=== PATIENT | female | born 1950 | race Caucasian/White ===

== ENCOUNTER 2021-12-24 12:05 | Outpatient (CLI) | payer MEDICARE, OTHER ==
[2021-12-24] VITALS (18 sets, daily range): BP systolic 89–126; BP diastolic 45–74
[~2021-12-24 12:05] MED LIST: METH4TAB81 PO
== END 2021-12-24 23:59 | disposition home or self-care (01) ==
LOC: CARD DIAG 12:05
PROVIDERS: ATTEND Internal Medicine Interventional Cardiology
DX: R55 Syncope and collapse (principal)
CPT/HCPCS: 93660

== ENCOUNTER 2022-09-21 07:54 | Day surgery (SDC) | payer MEDICARE, BC ==
[2022-09-16 16:25] LABS: BASOPHILS # (AUTO) 0.1 X10'3 (0-0.2); EOSINOPHILS # (AUTO) 0.2 X10'3 (0-0.9); EOSINOPHILS % (AUTO) 2.1 % (0-6); LYMPHOCYTES # (AUTO) 2.1 X10'3 (1.1-4.8); LYMPHOCYTES % (AUTO) 27.4 % (21-51); MEAN CORPUSCULAR HEMOGLOBIN 29.1 PG (27.0-31.0); MEAN CORPUSCULAR HGB CONC 33.7 g/dL (33.0-36.5); MEAN CORPUSCULAR VOLUME 86.4 FL (78-98); MEAN PLATELET VOLUME 7.3 FL (7.4-10.4); MONOCYTES # (AUTO) 0.8 X10'3 (0-0.9); MONOCYTES % (AUTO) 10.6 % (2-12); NEUTROPHILS # (AUTO) 4.6 X10'3 (1.8-7.7); NEUTROPHILS % (AUTO) 58.9 % (42-75); PRE OP HEMATOCRIT 39.3 % (35.0-45.0); PRE OP HEMOGLOBIN 13.2 g/dL (12.0-16.0); PRE OP PLATELET COUNT 402 X10'3 (140-440); RED BLOOD COUNT 4.55 X10'6 (4.20-5.60)
[2022-09-16 16:53] LABS: ALBUMIN 3.1 G/DL (3.4-5.0); ALBUMIN/GLOBULIN RATIO 0.7 (1.1-1.5); ALKALINE PHOSPHATASE 95 IU/L (46-116); BLOOD UREA NITROGEN 14 MG/DL (7-18); BUN/CREATININE RATIO 15.4 (6.6-38.0); CALCIUM 9.2 MG/DL (8.5-10.1); CHLORIDE 103 MMOL/L (99-107); CREATININE 0.91 MG/DL (0.40-0.90); PRE OP ALT 17 U/L (30-65); PRE OP ANION GAP 7 (8-16); PRE OP AST 16 U/L (10-37); PRE OP BILIRUB, TOTAL 0.3 MG/DL (0.0-1.0); PRE OP GLUCOSE 112 MG/DL (70-104); PRE OP POTASSIUM 3.9 MMOL/L (3.4-5.1); PRE OP SODIUM 139 MMOL/L (135-145); TOTAL CARBON DIOXIDE 29.1 MMOL/L (24-32); TOTAL PROTEIN 7.4 G/DL (6.4-8.2); eGFR 61 ML/MIN
[2022-09-21] VITALS (8 sets, daily range): BP systolic 119–132; BP diastolic 62–68
[~2022-09-21] VITALS: Ht 160 cm; Wt 57.4 kg
[~2022-09-21 07:54] MED LIST changes: +APIX5TAB3 PO; +DOCUMENT DATE & TIME OF BETA-BLOCKER PO ONE; -METH4TAB81 PO; +METO50TA16 PO; +MULT-1085 PO; +PANT20TA18 PO; +famotidine 20mg tablet PO ONE; +ringers solution, lacted 1,000 ML IV SCH
[2022-09-21] MEDS ORDERED: labetalol 20mg/4ml (5mg/ml) syringe IV PRN (08:10)
[2022-09-21] MEDS ORDERED: ringers solution, lacted 1,000 ML IV SCH (08:10)
[2022-09-21] MEDS ORDERED: morphine 4 MG/ML inj SYRINge IV PRN (08:10)
[2022-09-21] MEDS ORDERED: ondansetron/PF 4mg/2ml inj IV PRN (08:10)
[2022-09-21] MEDS ORDERED: morphine 2 MG/ML inj. syringe IV PRN (08:10)
[2022-09-21] MEDS ORDERED: proCHLORperazine 10 MG/2 ml inj IV PRN (08:10)
[2022-09-21] MEDS ORDERED: fentaNYL/PF 50MCG/1 ML 2ML syringe IV ONE (08:10)
[2022-09-21] MEDS ORDERED: enalaprilat dihydrate 2.5mg/2ml vial IV PRN (08:10)
[2022-09-21] MEDS ORDERED: LIDOcaine 1% 30ml preserv. free vial ONE (10:35)
[2022-09-21] MEDS ORDERED: BUPIVAcaine 0.5% inj/PF 30 ML ONE (10:35)
[2022-09-21] MEDS ORDERED: fentaNYL/PF 50MCG/1 ML 2ML syringe ONE (11:10)
[2022-09-21] MEDS ORDERED: MIDAZolam 1 MG/ML 5ML VIAL ONE (11:10)
[2022-09-21] MEDS ORDERED: propofol inj 20 ML IV ONE (11:15)
[2022-09-21] MEDS ORDERED: LIDOcaine 2% (20mg/ml) 5ml vial ONE (11:15)
[2022-09-21] MEDS ORDERED: BUPIVAcaine 0.5% inj/PF 30 ml vial IJ ONE (11:26)
[2022-09-21] MEDS ORDERED: LIDOcaine 1% 30ml preserv. free vial IJ ONE (11:26)
--- NOTE | 2022-09-21 12:05 | NUR ---
Received from OR via BED, accompanied by Anesthesiologist and report given by Anesthesiologist. PATIENT WAKING UP, NO S/S OF PAIN, V/S WNL, SCD ON, 20G TO LUE, RIGHT CALF DRESSING WITH NANDO [employer]AP CDI .
[2022-09-21] MEDS ORDERED: HYDROcodone/acetaminophen 5mg/325mg tablet PO PRN (12:35)
--- NOTE | 2022-09-21 12:55 | NUR ---
PATIENT [id number], DENIES PAIN, V/S WNL, SCD OFF, 20G TO LUE D/C, RIGHT CALF DRESSING WITH NANDO WRAP CDI . I HAVE REVIEWED D/C INSTRUCTIONS WITH PATIENT and they have verbalized understanding patient d/c home with all belongings and family gave transport home.
== END 2022-09-21 12:55 | disposition home or self-care (01) ==
LOC: PAS 07:54
PROVIDERS: ATTEND Surgery
DX: D17.23 Benign lipomatous neoplasm of skin and subcutaneous tissue of right leg (principal); I10 Essential (primary) hypertension; K21.9 Gastro-esophageal reflux disease without esophagitis; D68.51 Activated protein C resistance; M19.90 Unspecified osteoarthritis, unspecified site; Z88.5 Allergy status to narcotic agent; Z98.890 Other specified postprocedural states; Z79.899 Other long term (current) drug therapy; Z90.49 Acquired absence of other specified parts of digestive tract; Z86.718 Personal history of other venous thrombosis and embolism; Z82.49 Family history of ischemic heart disease and other diseases of the circulatory system; Z83.3 Family history of diabetes mellitus; Z82.61 Family history of arthritis; Z82.3 Family history of stroke; Z87.891 Personal history of nicotine dependence; Z90.710 Acquired absence of both cervix and uterus
CPT/HCPCS: 27619; 36415; 80053; 82948; 85025; 93005; J0690; J2250; J2704; J3010; J3490; J7030; J7060; J7120; S0020; Z7506; Z7508; Z7512; 88304; A4215; A4618; A6449; A7000